=== PATIENT | male | born 1935 | race Caucasian/White ===

== ENCOUNTER → 2017-02-17 | Outpatient (REF) | payer MEDICARE ==
[2017-02-17 16:53] LABS: ALBUMIN 3.1 GM/DL (3.2-5.2); ALBUMIN/GLOBULIN RATIO 0.78 (1.00-1.93); BILIRUBIN,TOTAL 0.4 MG/DL (0.2-1.0); CALCIUM LEVEL 8.9 MG/DL (8.8-10.2); CREATININE FOR GFR 2.87 MG/DL (0.70-1.30); GLOMERULAR FILTRATION RATE 22.6 (>35); MAGNESIUM LEVEL 2.2 MG/DL (1.8-2.4); TOTAL PROTEIN 7.1 GM/DL (6.4-8.2)
== END ==
LOC: M SFHCCLAY 11:42
PROVIDERS: ATTEND Family Medicine
DX: I10 Essential (primary) hypertension (principal); E11.22 Type 2 diabetes mellitus with diabetic chronic kidney disease; E78.5 Hyperlipidemia, unspecified; E83.42 Hypomagnesemia; E03.9 Hypothyroidism, unspecified

== ENCOUNTER → 2017-07-16 | Outpatient (REF) | payer MEDICARE ==
[2017-07-16 20:23] LABS: FOLATE 14.8 NG/ML
== END ==
LOC: M LAB REF 17:02
PROVIDERS: ATTEND Internal Medicine Nephrology
DX: N18.9 Chronic kidney disease, unspecified (principal); D63.1 Anemia in chronic kidney disease

== ENCOUNTER → 2018-02-25 | Outpatient (REF) | payer MEDICARE, OTHER ==
[2018-02-25 18:46] LABS: TOTAL PROTEIN,RANDOM URINE 148.7 MG/DL (0.0-12.0); URINE TOTAL PROTEIN 148.7 MG/DL (0-12)
[2018-02-25 19:23] LABS: IMMUNOGLOBULIN A 96.2 MG/DL (70-400); IMMUNOGLOBULIN G 1730 MG/DL (681-1648); TOTAL PROTEIN 6.9 GM/DL (6.4-8.2)
[2018-02-25 20:27] LABS: IMMUNOGLOBULIN M 17.4 MG/DL (40-230)
[2018-02-27 11:05] LABS: ALBUMIN % 51.6 % (55.8-66.1)
[2018-02-27 11:06] LABS: ALBUMIN 3.56 GM/DL (3.29-5.55); ALPHA-1-GLOBULIN % 4.2 % (2.9-4.9); ALPHA-1-GLOBULINS 0.29 GM/DL (0.17-0.41); ALPHA-2-GLOBULINS 0.77 GM/DL (0.42-0.99); ALPHA-2-GLOBULINS % 11.1 % (7.1-11.8); BETA-1-GLOBULINS 0.35 GM/DL (0.28-0.60); BETA-2-GLOBULINS 0.26 GM/DL (0.19-0.55); BETA-2-GLOBULINS % 3.8 % (3.2-6.5); GAMMA GLOBULIN % 24.3 % (11.1-18.8); GAMMA GLOBULINS 1.68 GM/DL (0.65-1.58)
[2018-02-27 13:09] LABS: UPEP INTERPRETATION M-SPIKE IN GAMMA; URINE VOLUME RANDOM ML
[2018-02-27 13:11] LABS: IMMUNOTYPE URINE IgG ABNORMAL (NORMAL); IMMUNOTYPE URINE KAPPA ABNORMAL (NORMAL)
[2018-02-27 13:21] LABS: IMMUNOTYPING SERUM IGG ABNORMAL (NORMAL); IMMUNOTYPING SERUM KAPPA ABNORMAL (NORMAL)
[2018-02-28 00:06] LABS: BETA 2 MICROGLOBULIN 6.2 mg/L (0.6-2.4)
[2018-02-28 00:06] LABS: FREE KAPPA LIGHT CHAINS SERUM 68.2 mg/L (3.3-19.4); FREE LAMBDA LIGHT CHAINS SERUM 31.9 mg/L (5.7-26.3); KAPPA/LAMBDA RATIO SERUM 2.14 (0.26-1.65)
== END ==
LOC: M LAB REF 16:44
DX: D47.2 Monoclonal gammopathy (principal)
CPT/HCPCS: 84165

== ENCOUNTER → 2018-03-25 | Outpatient (REF) | payer MEDICARE, OTHER ==
[2018-03-25 20:08] LABS: TOTAL PROTEIN 7.2 GM/DL (6.4-8.2)
[2018-03-26 11:05] LABS: ALBUMIN 3.74 GM/DL (3.29-5.55); ALBUMIN % 51.9 % (55.8-66.1); ALPHA-1-GLOBULINS 0.29 GM/DL (0.17-0.41); ALPHA-2-GLOBULINS 0.75 GM/DL (0.42-0.99); ALPHA-2-GLOBULINS % 10.4 % (7.1-11.8); BETA-1-GLOBULINS 0.37 GM/DL (0.28-0.60); BETA-1-GLOBULINS % 5.1 % (4.7-7.2); BETA-2-GLOBULINS 0.25 GM/DL (0.19-0.55); BETA-2-GLOBULINS % 3.5 % (3.2-6.5); GAMMA GLOBULIN % 25.1 % (11.1-18.8); GAMMA GLOBULINS 1.81 GM/DL (0.65-1.58)
[2018-03-28 00:07] LABS: FREE KAPPA LIGHT CHAINS SERUM 74.7 mg/L (3.3-19.4); FREE LAMBDA LIGHT CHAINS SERUM 33.1 mg/L (5.7-26.3); KAPPA/LAMBDA RATIO SERUM 2.26 (0.26-1.65)
== END ==
LOC: M LAB REF 17:45
DX: D47.2 Monoclonal gammopathy (principal)
CPT/HCPCS: 84165

== ENCOUNTER → 2018-04-24 | Outpatient (CLI) | payer MEDICARE | LOC: M RAD 12:19 | DX: N18.4 Chronic kidney disease, stage 4 (severe) (principal); Z01.818 Encounter for other preprocedural examination (principal); I15.0 Renovascular hypertension; R60.0 Localized edema | CPT/HCPCS: G0365 ==

== ENCOUNTER → 2018-07-15 | Outpatient (REF) | payer MEDICARE ==
[2018-07-15 17:02] LABS: APPEARANCE, URINE CLEAR (CLEAR); BACTERIA, URINE AUTO NEGATIVE (NEGATIVE); BILIRUBIN, URINE AUTO NEGATIVE (NEGATIVE); BLOOD, URINE BLOOD NEGATIVE (NEGATIVE); COLOR, URINE STRAW (YELLOW); GLUCOSE, URINE (UA) AUTO 2+ mg/dL (NEGATIVE); KETONE, URINE AUTO NEGATIVE (NEGATIVE); LEUKOCYTE ESTERASE, URINE AUTO NEGATIVE (NEGATIVE); NITRITE, URINE AUTO NEGATIVE (NEGATIVE); PROTEIN, URINE AUTO 1+ mg/dL (NEGATIVE); RBC, URINE AUTO 0 /HPF (0-3); SPECIFIC GRAVITY URINE AUTO 1.009 (1.002-1.035); SQUAMOUS EPITHELIAL CELL UR AU 0 /HPF (0-6); UROBILINOGEN, URINE AUTO 0.2 mg/dL (0.0-2.0); WBC, URINE AUTO 0 /HPF (0-3)
== END ==
LOC: M LAB REF 16:16
DX: N18.4 Chronic kidney disease, stage 4 (severe) (principal)
CPT/HCPCS: 81001